=== PATIENT | male | born 1995 | race Two or more races ===

== ENCOUNTER 2020-02-05 17:18 | Outpatient (REF) | payer OTHER, SELFPAY | END 2020-02-05 17:19 | disposition home or self-care (01) | LOC: HO.LAB 17:18 | PROVIDERS: Visit Provider Internal Medicine | DX: Z20.828 Contact with and (suspected) exposure to other viral communicable diseases (principal) | CPT/HCPCS: C9803; U0003 ==

== ENCOUNTER 2023-02-25 21:28 | Emergency (ER) | payer OTHER, SELFPAY ==
[2023-02-25 21:55] VITALS: BP 117/77; PULSE 111; RESP 20; TEMP 36.8; O2SAT 98; BMI 21.9
--- NOTE | 2023-02-26 01:54 | ED_ITS ---
HPI - General Adult General Chief complaint: General Medical Stated complaint: head inj Time Seen by Provider: 02/26/23 01:50 Source: patient, RN notes reviewed and old records reviewed Mode of arrival: ambulatory Limitations: no limitations History of Present Illness HPI narrative: 27-year-old female presents for evaluation of a head injury. Patient reports that he was playing basketball when he was attempting to save the ball from going out of bounds. The he struck the top of his head against a brick wall He did not lose consciousness Denies any blurry vision, nausea, dizziness He states that has a mild headache and ?lump on my head. ? He has been using ice with good relief of his pain He complains of a mild headache He states this happened at 7:00 p.m. Related Data Previous Rx's Medication Instructions Recorded amitriptyline 25 mg tablet 25 mg PO DAILY #90 tabs 02/25/23 Allergies Allergy/AdvReac Type Severity Reaction Status Date / Time No Known Allergies Allergy Verified 06/18/21 14:56 [No Known Allergies*] Review of Systems Constitutional: Constitutional: Denies chills, Denies fever(s) and Reports headache(s) Eyes: Eyes: Denies blurry vision and Denies loss of vision ENT: Reports headache(s), Denies neck pain and Denies sore throat Cardiovascular: Cardiovascular: Denies chest pain and Denies dyspnea Respiratory: Respiratory: Denies cough and Denies dyspnea Gastrointestinal: Gastrointestinal: Denies abdominal pain, Denies nausea and Denies vomiting Musculoskeletal: Musculoskeletal: Denies back pain and Denies neck pain Integumentary/Breasts: Skin/Breast: Denies rash Neurologic: Reports headache(s), Denies focal weakness, Denies loss of vision and Denies memory loss Psychiatric: Psychiatric: Denies memory loss [facility] Past Medical History Medical History (Updated 02/26/23 @ 02:01 by Say Forbes) Endogenous depression Surgical History History of appendectomy Family History Family History (Updated 06/18/21 @ 14:55 by WELLINGTON Ferreira) Father No problems noted. Mother No problems noted. Social History Social History (Updated 06/18/21 @ 15:01 by Shimarlia Kwade, RMA) Housing: House Alcohol intake: never Patient Tobacco Use Status: Never used Tobacco e-Cigarette/Vaping Use: Never Used Second Hand Smoke Exposure: No Advance Directives: No Advance Directives Information Provided: Yes service: No Current occupational status: employed Current occupation: Advisor Cognitive needs: No Hearing needs: No Vision needs: Yes (glasses) Physical Exam ED Vital Signs: Vital Signs - 24 hr 02/25/23 21:55 Temperature 98.2 F Pulse Rate 111 H Respiratory Rate 20 Blood Pressure 117/77 Pulse Oximetry 98 Oxygen Delivery Method Room Air BMI result Body Mass Index 21.9 Const General: healthy appearing, comfortable, no acute distress, alert and awake Nutritional Appearance: well nourished Orientation/consciousness: patient oriented x3 HENMT Head: Yes normocephalic and Yes abrasion (Top of the scalp, no deep lacerations) Eyes Eyelids: Yes eyelids normal Conjunctivae: conjunctivae normal Sclerae: sclerae normal Corneas: corneas normal Pupils: Equal, round and reactive pupils present EOM: EOMs intact bilaterally Neck Neck: Yes full ROM Resp Effort & Inspection: normal respiratory effort, able to speak in complete sentences and not labored Cardio Rate: regular rate Rhythm: regular rhythm GI Inspection: No distended Palpation (GI): Soft to palpation, not firm, nontender, no guarding and not rigid Back/Spine/Pelvis Other: No C-spine tenderness Skin General skin exam: elasticity normal Neuro General: patient oriented x3 Cranial nerves: Yes CN's II-XII intact bilaterally, Yes Equal, round and reactive pupils present and Yes Bilaterally intact EOM present Cognition (Neuro): normal cognition Extrem Other: Moving all extremities well without any obvious deformities Medical Decision Making Medical Decision Making MDM Narrative: 27-year-old male presents for evaluation minor head injury. There was no loss of consciousness, no llanes sign. He has no neuro deficits. No C-spine tenderness. I do not see any indication for emergent imaging this time. This happened 7 hours ago any complains of mild headache with no other signs or symptoms. Patient is stable for discharge at this time. Differential Diagnosis Differential Diagnoses: The differential diagnosis associated with the presentation includes Acute headache Tension headache Cluster headache Concussion Abrasion Discharge Plan Discharge Clinical Impression: Minor closed head injury Patient Disposition: Home, Self-Care Instructions: Head Injury (ED) Additional Instructions: Your physical exam is reassuring. You should avoid strenuous exercise/activity for the next 2-3 days You should avoid playing sports until your headaches have resolved Use ibuprofen and or Tylenol for your pain Return for new or worsening symptoms, especially developed vomiting, blurry vision, lightheadedness or dizziness Prescriptions: No Action amitriptyline 25 mg tablet 25 mg PO DAILY Qty: 90 0RF Stand Alone Forms: Work/School Release
== END 2023-02-26 02:10 | disposition home or self-care (01) ==
PROVIDERS: Emergency Provider Internal Medicine
DX: S09.8XXA Other specified injuries of head, initial encounter (principal); W22.09XA Striking against other stationary object, initial encounter; Y93.67 Activity, basketball; Y92.310 Basketball court as the place of occurrence of the external cause; Y99.9 Unspecified external cause status
CPT/HCPCS: 99282; 99284

== ENCOUNTER 2023-09-08 14:57 | Outpatient (AMB) | payer OTHER, SELFPAY ==
--- NOTE | 2023-09-08 15:02 | A.OFFPC_ITS ---
Vital Signs 09/08/23 15:04 Height 5 ft 7 in Weight 146 lb BMI 22.9 BP 108/66 Blood Pressure Location Lt brachial Position Sitting Pulse 87 Pulse Source Pulse Oximeter Pulse Oximetry (%) 98 Oxygen Delivery Method Room Air Intake Visit Reasons: Medications F/U Intake Note: Patient is here to follow up on medication review. Oyster Sorter Required: No Quarantine Inspector: Not Required per policy Accompanied by: Self / Same As Patient Allergies No Known Allergies [No Known Allergies*] Allergy (Verified 09/09/23 10:28) Medication List - Last Reconciled 09/09/23 by Tyrone Wilkerson MD amitriptyline 25 mg PO DAILY Tobacco use date assessed: 09/08/23 Dental Screening Dental Screen Date: 09/08/23 Did you have a dental visit in the last 12 months?: Yes Did you have a dental problem in the last 6 months where you did not have access to dental care?: No Was dental information given to patient?: Patient has dentist HPI Medications F/U HPI Details 28-year-old male presents to the office to discuss his chronic medical conditions. Patient is compliant with his medications and reporting no side effects. He is feeling better and is more active. He still lives in the basement of his grandmother's house. Continues to work at the [employer] and able to keep his full-time job. Patient reports that he has been sexually active recently. He has had multiple partners and has been using protection all the time. He would like to check for infectious diseases. Reports no symptoms of discharge or burning on urination. [facility], [facility] Medical History Endogenous depression Surgical History History of appendectomy Family History Father No problems noted. Mother No problems noted. Social History Housing: House Alcohol intake: never Patient Tobacco Use Status: Never used Tobacco e-Cigarette/Vaping Use: Never Used Second Hand Smoke Exposure: No service: No Current occupational status: employed Current occupation: Advisor Cognitive needs: No Hearing needs: No Vision needs: Yes (glasses) Questionnaire PHQ-9 Over the last 2 weeks, how often have you been bothered by any of the following problems? 1. Little interest or pleasure in doing things: not at all 2. Feeling down, depressed, or hopeless: not at all 3. Trouble falling or staying asleep, or sleeping too much: not at all 4. Feeling tired or having little energy: not at all 5. Poor appetite or overeating: not at all 6. Feeling bad about yourself - or that you are a failure or have let yourself or your family down: not at all 7. Trouble concentrating on things, such as reading the newspaper or watching television: not at all 8. Moving or speaking so slowly that other people could have noticed. Or the opposite - being so fidgety or restless that you have been moving around a lot more than usual: not at all 9. Thoughts that you would be better off or of hurting yourself in some way: not at all Total score: 0 Depression Screening Interpretation: Negative Depression Screening Done: Yes Source: Developed by Drs. Sheldon Castillo, Mariela Farnsworth, Armand Jenkins and colleagues, with an educational otoniel from [employer]. Thrive Questionnaire Date Thrive assessed: 09/08/23 I am a: Patient What is your living situation today?: I have a steady place to live Within the past 12 months, did the food you bought not last and you didn't have the money to get more?: Never true Within the past 12 months, did you worry whether your food would run out before you got money to buy more?: Never true Do you have trouble paying for medicines?: No Do you have trouble getting transportation to medical appointments?: No Do you have trouble paying your heating and electricity bill?: No Do you have trouble taking care of your child, family member or friend?: No Do you have trouble with day-to-day activities such as bathing, preparing meals, shopping, managing finances, etc.?: No Are you currently unemployed and looking for a job?: No Are you interested in more education?: No Currently or been in a relationship where the following occur: no concerns reported THRIVE Score: 0 AUDIT C Alcohol Use Questionnaire (AUDIT-C) 1. How often do you have a drink containing alcohol?: Never Total Score: 0 JANNETH-7 AMB Questionnaire JANNETH-7 Date JANNETH - 7 assessed: 09/08/23 Feeling nervous, anxious, or on edge: 0 = Not at all Not being able to stop or control worryin = Not at all Worrying too much about different things: 0 = Not at all Trouble relaxin = Not at all Being so restless that it is hard to sit still: 0 = Not at all Becoming easily annoyed or irritable: 0 = Not at all Feeling afraid as if something awful might happen: 0 = Not at all Total JANNETH-7 score (0-4 normal; 5-9 mild; 10-14 moderate; 15-21 severe): 0 Source: Developed by Drs. Sheldon Castillo, Mariela Farnsworth, Armand Jenkins and colleagues, with an educational otoniel from [employer]. Physical exam (Primary Care) Vital Signs: Last Vital Signs Pulse 87 09/08/23 15:04 BP 108/66 09/08/23 15:04 Pulse Ox 98 09/08/23 15:04 Oxygen Delivery Method Room Air 09/08/23 15:04 Care Plan Goal for BP management: Blood pressure is well controlled. BMI result Body Mass Index 22.9 Tobacco/Smoking Status: Tobacco use Status Tobacco use date assessed 09/08/23 09/08/23 15:20 Patient Tobacco Use Status Never used Tobacco 09/08/23 15:20 e-Cigarette/Vaping Use Never Used 09/08/23 15:20 PHQ-9: PHQ-9 Score PHQ-9: Total score 0 09/08/23 15:20 Depression Screening Interpretation: Negative Thrive Assessment: Date of Thrive Assessment Date Thrive assessed 09/08/23 09/08/23 15:20 Currently or been in a relationship where the following occur: no concerns reported Const General: cooperative and healthy appearing Nutritional Appearance: well nourished Orientation/consciousness: patient oriented x3 Limitations: no limitations HENMT Head: Yes normal to inspection Eyes General: appearance normal, both eyes and all related structures Neck Neck: Yes normal visual inspection Chest Chest palpation & inspection: normal palpation of entire chest wall Resp Effort & Inspection: normal respiratory effort Neuro General: patient oriented x3 Assessment and Plan Assessment & Plan (1) Endogenous depression: Code(s): F33.2 - Major depressive disorder, recurrent severe without psychotic features Plan: Continue medications at same dosage. Refill on prescriptions done. Blood work has been ordered. Will call with the results of the blood work. (2) Screening examination for infectious disease: Code(s): Z11.9 - Encounter for screening for infectious and parasitic diseases, unspecified Plan: HIV/RPR and urine testing for gonorrhea and chlamydia ordered. Patient was counseled on the practices of safe sex. Orders: Orders Basic Metabolic Panel 09/08/23 F33.2 - Major depressive disorder, recurrent severe without psychotic features Lipid Panel 09/08/23 F33.2 - Major depressive disorder, recurrent severe without psychotic features Liver Panel 09/08/23 F33.2 - Major depressive disorder, recurrent severe without psychotic features HIV Ab/Ag 09/08/23 Z11.9 - Encounter for screening for infectious and parasitic diseases, unspecified Complete Blood Count no Diff 09/08/23 F33.2 - Major depressive disorder, recurrent severe without psychotic features Syphilis Screen 09/08/23 Z11.9 - Encounter for screening for infectious and parasitic diseases, unspecified CT NG by PCR 09/08/23 Z11.9 - Encounter for screening for infectious and parasitic diseases, unspecified Coding Level of Care Code Est Pt Level 4 (32406) Complex EM visit Add On G2211 Diagnoses Endogenous depression F33.2 Screening examination for infectious disease Z11.9
[2023-09-08 15:04] VITALS: BP 108/66; PULSE 87; O2SAT 98; BMI 22.9
== END 2023-09-08 15:50 | disposition home or self-care (01) ==
PROVIDERS: PCP Internal Medicine; Visit Provider Internal Medicine
DX: F33.2 Major depressive disorder, recurrent severe without psychotic features (principal); Z11.9 Encounter for screening for infectious and parasitic diseases, unspecified
CPT/HCPCS: 99214; G2211

== ENCOUNTER 2023-11-30 13:23 | Outpatient (AMB) | payer OTHER, SELFPAY ==
--- NOTE | 2023-11-30 13:25 | MHC.PC.OV ---
Vital Signs 11/30/23 13:27 Height 5 ft 7 in Weight 140 lb BMI 21.9 BP 110/70 Blood Pressure Location Lt brachial Position Sitting Pulse 86 Pulse Source Pulse Oximeter Pulse Oximetry (%) 99 Oxygen Delivery Method Room Air Intake Visit Reasons: pe Intake Note: Patient is here today for a physical. Clinical Cytogeneticist Scientist Required: No Check Writing Machine Operator: Not Required per policy Accompanied by: Self / Same As Patient Allergies No Known Allergies [No Known Allergies*] Allergy (Verified 11/30/23 14:07) Medication List - Last Reconciled 11/30/23 by Tyrone Wilkerson MD amitriptyline 25 mg PO DAILY Tobacco use date assessed: 11/30/23 Dental Screening Dental Screen Date: 09/08/23 HPI pe HPI Details 28-year-old male presents to the office requesting an annual physical. [facility] Medical History Endogenous depression Surgical History History of appendectomy Family History Father No problems noted. Mother No problems noted. Social History Housing: House Alcohol intake: current Alcohol intake frequency: a few times a month Patient Tobacco Use Status: Never used Tobacco e-Cigarette/Vaping Use: Never Used Second Hand Smoke Exposure: No service: No Current occupational status: employed Current occupation: Advisor Cognitive needs: No Hearing needs: No Vision needs: Yes (glasses) Questionnaire PHQ-9 Over the last 2 weeks, how often have you been bothered by any of the following problems? 1. Little interest or pleasure in doing things: several days 2. Feeling down, depressed, or hopeless: not at all 3. Trouble falling or staying asleep, or sleeping too much: not at all 4. Feeling tired or having little energy: several days 5. Poor appetite or overeating: several days 6. Feeling bad about yourself - or that you are a failure or have let yourself or your family down: not at all 7. Trouble concentrating on things, such as reading the newspaper or watching television: not at all 8. Moving or speaking so slowly that other people could have noticed. Or the opposite - being so fidgety or restless that you have been moving around a lot more than usual: not at all 9. Thoughts that you would be better off or of hurting yourself in some way: not at all Total score: 3 Depression Screening Interpretation: Positive Depression Screening Follow-up: Existing condition and In treatment Depression Screening Done: Yes Source: Developed by Drs. Sheldon Castillo, Mariela Farnsworth, Armand Jenkins and colleagues, with an educational otoniel from [employer]. Thrive Questionnaire Date Thrive assessed: 11/23/23 I am a: Patient What is your living situation today?: I have a steady place to live Within the past 12 months, did the food you bought not last and you didn't have the money to get more?: Never true Within the past 12 months, did you worry whether your food would run out before you got money to buy more?: Never true Do you have trouble paying for medicines?: No Do you have trouble getting transportation to medical appointments?: No Do you have trouble paying your heating and electricity bill?: No Do you have trouble taking care of your child, family member or friend?: No Do you have trouble with day-to-day activities such as bathing, preparing meals, shopping, managing finances, etc.?: No Are you currently unemployed and looking for a job?: No Are you interested in more education?: No Please select the resources that you would like help with: None Currently or been in a relationship where the following occur: No concerns reported THRIVE Score: 0 AUDIT C Alcohol Use Questionnaire (AUDIT-C) 1. How often do you have a drink containing alcohol?: Monthly or less 2. How many drinks containing alcohol do you have on a typical day when you are drinking?: 1 or 2 3. How often do you have six or more drinks on one occasion?: Monthly Total Score: 3 JANNETH-7 AMB Questionnaire JANNETH-7 Date JANNETH - 7 assessed: 11/30/23 Feeling nervous, anxious, or on edge: 1 = Several days Not being able to stop or control worryin = Not at all Worrying too much about different things: 1 = Several days Trouble relaxin = Several days Being so restless that it is hard to sit still: 1 = Several days Becoming easily annoyed or irritable: 2 = More than half the days Feeling afraid as if something awful might happen: 1 = Several days Total JANNETH-7 score (0-4 normal; 5-9 mild; 10-14 moderate; 15-21 severe): 7 Source: Developed by Drs. Sheldon Castillo, Mariela Farnsworth, Armand Jenkins and colleagues, with an educational otoniel from [employer]. Physical exam (Primary Care) Vital Signs: Last Vital Signs Pulse 86 11/30/23 13:27 BP 110/70 11/30/23 13:27 Pulse Ox 99 11/30/23 13:27 Oxygen Delivery Method Room Air 11/30/23 13:27 BMI result Body Mass Index 21.9 Tobacco/Smoking Status: Tobacco use Status Tobacco use date assessed 11/30/23 11/30/23 13:31 Patient Tobacco Use Status Never used Tobacco 11/30/23 13:31 e-Cigarette/Vaping Use Never Used 11/30/23 13:31 PHQ-9: PHQ-9 Score PHQ-9: Total score 3 11/30/23 13:31 Depression Screening Interpretation: Positive Depression Screening Follow-up: Existing condition and In treatment Thrive Assessment: Date of Thrive Assessment Date Thrive assessed 11/23/23 11/30/23 13:31 Currently or been in a relationship where the following occur: No concerns reported Const General: cooperative and healthy appearing Nutritional Appearance: well nourished Orientation/consciousness: patient oriented x3 Limitations: no limitations HENMT Head: Yes normal to inspection Eyes General: appearance normal, both eyes and all related structures Neck Neck: Yes normal visual inspection Chest Chest palpation & inspection: normal palpation of entire chest wall Resp Effort & Inspection: normal respiratory effort Neuro General: patient oriented x3 Assessment and Plan Assessment & Plan (1) Endogenous depression: Code(s): F33.2 - Major depressive disorder, recurrent severe without psychotic features Plan: Condition is stable. PHQ-9 scores are stable. Continue amitriptyline at same dosage. (2) Annual physical exam: Code(s): Z00.00 - Encounter for general adult medical examination without abnormal findings Plan: Blood work has been ordered. Encouraged to exercise and follow a healthy diet. Coding Level of Care Code Est Pt Prev Care 18-39y(28598) Diagnoses Endogenous depression F33.2 Annual physical exam Z00.00
[2023-11-30 13:27] VITALS: BP 110/70; PULSE 86; O2SAT 99; BMI 21.9
== END 2023-11-30 15:40 | disposition home or self-care (01) ==
PROVIDERS: PCP Internal Medicine; Visit Provider Internal Medicine
DX: F33.2 Major depressive disorder, recurrent severe without psychotic features (principal); Z00.00 Encounter for general adult medical examination without abnormal findings
CPT/HCPCS: 99395

== ENCOUNTER 2023-11-30 13:51 | Outpatient (REF) | payer OTHER, SELFPAY ==
[2023-11-30 14:17] LABS: Hematocrit 40.8 % (42.0-52.0); Hemoglobin 14.2 g/dl (14.0-18.0); Mean Corpuscular HGB Conc 34.8 g/dl (31.0-36.0); Mean Corpuscular Hemoglobin 30.4 pg (27.0-33.0); Mean Corpuscular Volume 87.4 fL (80.0-98.0); Mean Platelet Volume 8.5 fL (9.4-12.4); Platelet Count 299 X10*3/uL (160-400); Red Blood Count 4.67 X10*6/uL (4.60-5.80); Red Cell Distribution Width 12.1 % (11.0-16.0); White Blood Count 6.5 X10*3/uL (4.8-10.8)
[2023-11-30 14:54] LABS: Alanine Aminotransferase 14 U/L (0-40); Albumin Level 4.6 g/dL (3.5-5.0); Alkaline Phosphatase 55 U/L (39-117); Anion Gap 12 (12-20); Aspartate Amino Transferase 22 U/L (5-37); Bilirubin Direct 0.3 mg/dL (0.0-0.5); Blood Urea Nitrogen 9 mg/dL (9-16); Calcium 9.7 mg/dL (8.4-10.2); Carbon Dioxide 29 mmol/L (22-29); Chloride 104 mmol/L (96-108); Cholesterol 173 mg/dL (<200); Estimated Glomerular Filt Rate > 60; Glucose Random 88 mg/dL (60-115); HDL Cholesterol 47 mg/dL (>40); LDL Cholesterol Calculated 110 mg/dL (<100); Sodium 141 mmol/L (135-145); Total Protein 7.8 g/dL (6.5-8.0); Triglycerides 80 mg/dL (<150)
[2023-12-01 08:11] LABS: HIV AB/AG Nonreactive (Nonreactive); HIV Num 1 0.06 S/CO (0.00-0.99)
[2023-12-01 08:13] LABS: Syphilis Screen Nonreactive (Nonreactive)
== END 2023-11-30 13:52 | disposition home or self-care (01) ==
LOC: HO.LAB 13:51
PROVIDERS: PCP Internal Medicine; Visit Provider Internal Medicine
DX: F33.2 Major depressive disorder, recurrent severe without psychotic features (principal); Z11.9 Encounter for screening for infectious and parasitic diseases, unspecified
CPT/HCPCS: 36415; 80048; 80061; 80076; 85027; 86780; 87389

== ENCOUNTER 2024-12-06 13:30 | Outpatient (AMB) | payer OTHER, SELFPAY ==
--- NOTE | 2024-12-06 13:36 | A.OFFPC_ITS ---
Vital Signs 12/06/24 13:37 Height 5 ft 7 in Weight 148 lb BMI 23.2 BP 110/64 Blood Pressure Location Lt brachial Position Sitting Pulse 82 Pulse Source Pulse Oximeter Temp 97.3 F Temp Source Temporal Artery Scan Pulse Oximetry (%) 99 Oxygen Delivery Method Room Air Intake Visit Reasons: Annual Exam Intake Note: Patient is here today for a physical. Car Repossessor Required: No Application Operations Engineer: Not Required per policy Accompanied by: Self / Same As Patient Allergies No Known Allergies (No Known Allergies*) Allergy (Verified 12/06/24 13:37) Tobacco use date assessed: 12/06/24 Dental Screening Dental Screen Date: 12/06/24 Did you have a dental visit in the last 12 months?: Yes Did you have a dental problem in the last 6 months where you did not have access to dental care?: No Was dental information given to patient?: Patient has dentist [facility] Medical History Endogenous depression Surgical History History of appendectomy Family History Father No problems noted. Mother No problems noted. Social History Housing: House Alcohol intake: current Alcohol intake frequency: a few times a month Patient Tobacco Use Status: Never used Tobacco e-Cigarette/Vaping Use: Never Used Second Hand Smoke Exposure: No service: No Current occupational status: employed Current occupation: Advisor Cognitive needs: No Hearing needs: No Vision needs: Yes (glasses) Questionnaire PHQ-9 Over the last 2 weeks, how often have you been bothered by any of the following problems? 1. Little interest or pleasure in doing things: not at all 2. Feeling down, depressed, or hopeless: not at all 3. Trouble falling or staying asleep, or sleeping too much: not at all 4. Feeling tired or having little energy: not at all 5. Poor appetite or overeating: not at all 6. Feeling bad about yourself - or that you are a failure or have let yourself or your family down: not at all 7. Trouble concentrating on things, such as reading the newspaper or watching television: not at all 8. Moving or speaking so slowly that other people could have noticed. Or the opposite - being so fidgety or restless that you have been moving around a lot more than usual: not at all 9. Thoughts that you would be better off or of hurting yourself in some way: not at all Total score: 0 Depression Screening Interpretation: Negative Depression Screening Done: Yes Source: Developed by Drs. Sheldon Castillo, Mariela Farnsworth, Armand Jenkins and colleagues, with an educational otoniel from [employer]. Thrive Questionnaire Date Thrive assessed: 12/06/24 I am a: Patient What is your living situation today?: I have a steady place to live Within the past 12 months, did the food you bought not last and you didn't have the money to get more?: Never true Within the past 12 months, did you worry whether your food would run out before you got money to buy more?: Never true Do you have trouble paying for medicines?: No Do you have trouble getting transportation to medical appointments?: No Do you have trouble paying your heating and electricity bill?: No Do you have trouble taking care of your child, family member or friend?: No Do you have trouble with day-to-day activities such as bathing, preparing meals, shopping, managing finances, etc.?: No Are you currently unemployed and looking for a job?: No Are you interested in more education?: No Please select the resources that you would like help with: None Currently or been in a relationship where the following occur: No concerns reported THRIVE Score: 0 AUDIT C Alcohol Use Questionnaire (AUDIT-C) 1. How often do you have a drink containing alcohol?: Monthly or less 2. How many drinks containing alcohol do you have on a typical day when you are drinking?: 3 or 4 Total Score: 2 JANNETH-7 AMB Questionnaire JANNETH-7 Date JANNETH - 7 assessed: 12/06/24 Feeling nervous, anxious, or on edge: 1 = Several days Not being able to stop or control worryin = Not at all Worrying too much about different things: 1 = Several days Trouble relaxin = Several days Being so restless that it is hard to sit still: 0 = Not at all Becoming easily annoyed or irritable: 1 = Several days Feeling afraid as if something awful might happen: 0 = Not at all Total JANNETH-7 score (0-4 normal; 5-9 mild; 10-14 moderate; 15-21 severe): 4 Source: Developed by Drs. Sheldon Castillo, Mariela Farnsworth, Armand Jenkins and colleagues, with an educational otoniel from [employer]. Physical exam (Primary Care) Vital Signs: Last Vital Signs Temp 97.3 F 12/06/24 13:37 Pulse 82 12/06/24 13:37 BP 110/64 12/06/24 13:37 Pulse Ox 99 12/06/24 13:37 Oxygen Delivery Method Room Air 12/06/24 13:37 BMI result Body Mass Index 23.2 Tobacco/Smoking Status: Tobacco use Status Tobacco use date assessed 12/06/24 12/06/24 13:43 Patient Tobacco Use Status Never used Tobacco 12/06/24 13:43 e-Cigarette/Vaping Use Never Used 12/06/24 13:43 PHQ-9: PHQ-9 Score PHQ-9: Total score 0 12/06/24 13:43 Depression Screening Interpretation: Negative Thrive Assessment: Date of Thrive Assessment Date Thrive assessed 12/06/24 12/06/24 13:43 Currently or been in a relationship where the following occur: No concerns reported Coding Level of Care Code Est Pt Prev Care [id number](95010) Diagnoses 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 - He reports no current health concerns and is compliant with his medication, amitriptyline. - The patient lives with his father and engages in regular home-based exercise routines. - He denies any use of tobacco or nicotine products. Social History - Employment: The patient is currently working, though the specific occupation is not detailed. - Housing: Resides with his father. - Exercise: Engages in home workouts regularly. - Nutrition: Consumes both home-cooked and outside food. - Substance Use: Denies tobacco and nicotine use. Review of Systems - General: Denies any current health concerns. - Genitourinary: Denies any urinary issues. - Neurological: Denies any mental health concerns. - Respiratory: Denies tobacco use. Physical Exam General: Cooperative and healthy appearing Nutritional Appearance: Well nourished Orientation/consciousness: Patient oriented x3 Limitations: No limitations Head: Normal to inspection General: Appearance normal, both eyes and all related structures Neck: Normal visual inspection Chest: Normal palpation of entire chest wall Respiratory: Normal respiratory effort Neurology: Patient oriented x3 Results Plan Discussion Notes Patient Instructions - Continue taking amitriptyline as prescribed. - Maintain regular exercise routines at home. - Follow a balanced diet with a mix of home-cooked and outside food. - Schedule and complete annual blood work as discussed.
[2024-12-06 13:37] VITALS: BP 110/64; PULSE 82; TEMP 36.3; O2SAT 99; BMI 23.2
--- OUTSIDE RECORDS SUMMARY | 2024-12-06 17:26 | XMS_ITS | Clinical Summary ---
Author Organization [employer] Address [address] [place] [address] Care Team Providers Care Vascular Surgeon Name Role Phone Unavailable Primary Care Provider Unavailabl e Social History Tobacco Use Types Packs/Day Years Used Date Smoking Tobacco: Never Assessed Sex and Gender Information Value Date Recorded Sex Assigned at Male 01/25/2022 10:14 AM EDT Legal Sex Male 10:14 AM EDT Gender Identity Male 01/25/2022 10:14 AM EDT Sexual Orientation Straight 01/25/2022 10 :14 AM EDT Plan of Treatment Health Maintenance Due Date Last Done Comments Depression Screening 1993 Disability Screening 1993 Alcohol/Substance Use Screening 2005 Tobacco Screening 2005 Family Planning (PISQ) 2008 HPV Vaccines (1 - Male 3-dos e series) 2008 DTaP/Tdap/Td Vaccines (1 - Tdap) 2012 Hepatitis B Vaccines (1 of 3 - 19+ 3-dose series) 2012 COVID-19 Vaccine (1 - 2023-2 5 season) 2024 Influenza Vaccine (#1) 2024 Zoster Vaccines (1 of 2) 2043 RSV Patients and Pa tients Aged 60 years or older (1 - 1-dose 75+ series) 2068 HIB Vaccines Aged Out No longer eligi ble based on patient's age to complete this topic Hepatitis A Vaccines Aged Out No long er eligible based on patient's age to complete this topic IPV Vaccines Aged Out No longer eligi ble based on patient's age to complete this topic Meningococcal B Vaccine Aged Out No l onger eligible based on patient's age to complete this topic Meningococcal Vaccine Aged Out No floridalma ruth eligible based on patient's age to complete this topic Pneumococcal Vaccine: Pediat rics (0 to 5 Years) and At-Risk Patients (6 to 49) Years Aged Out No longer eligible b ased on patient's age to complete this topic RSV under 20 months Aged Out No longe r eligible based on patient's age to complete this topic Rotavirus Vaccines Aged Out No longer eligible based on patient's age to complete this topic
--- OUTSIDE RECORDS SUMMARY | 2024-12-06 17:26 | XMS_ITS | Encounter Summary ---
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 Role Phone Unavailable Primary Care Provider Unavailabl e Encounter Details Date Type Department Care Team (Latest Contact Info) Description 10/02/2020 Abstract [facility] CONVERSIONS Dental, Provider, DDS Social History Tobacco Use Types Packs/Day Years Used Date Smoking Tobacco: Never Assessed Sex and Gender Information Value Date Recorded Sex Assigned at Male 01/25/2022 10:14 AM EDT Legal Sex Male 10:14 AM EDT Gender Identity Male 01/25/2022 10:14 AM EDT Sexual Orientation Straight 01/25/2022 10 :14 AM EDT documented as of this encounter Plan of Treatment Not on file documented as of this encounter Visit Diagnoses Not on filedocumented in this encounter
== END 2024-12-06 14:00 | disposition home or self-care (01) ==
LOC: HO.HMCH 13:32
PROVIDERS: PCP Internal Medicine; Visit Provider Internal Medicine
DX: F33.2 Major depressive disorder, recurrent severe without psychotic features (principal); Z00.00 Encounter for general adult medical examination without abnormal findings

== ENCOUNTER → 2024-12-06 13:30 | Outpatient (BNVA) | payer OTHER, SELFPAY | PROVIDERS: PCP Internal Medicine; Visit Provider Internal Medicine | DX: Z00.00 Encounter for general adult medical examination without abnormal findings (principal); F33.2 Major depressive disorder, recurrent severe without psychotic features; Z79.899 Other long term (current) drug therapy; Z13.31 Encounter for screening for depression; Z13.39 Encounter for screening examination for other mental health and behavioral disorders | CPT/HCPCS: 99395 ==